=== PATIENT | male | born 1965 | race Caucasian/White ===

== ENCOUNTER → 2019-07-09 | Outpatient (CLI) | payer OTHER | LOC: MHCPAIN 07-02 08:40 | DX: G89.29 Other chronic pain (principal); M47.817 Spondylosis without myelopathy or radiculopathy, lumbosacral region; M54.16 Radiculopathy, lumbar region; M53.3 Sacrococcygeal disorders, not elsewhere classified; M96.1 Postlaminectomy syndrome, not elsewhere classified; M47.814 Spondylosis without myelopathy or radiculopathy, thoracic region | CPT/HCPCS: G0463 ==

== ENCOUNTER → 2019-07-14 | Outpatient (CLI) | payer OTHER | LOC: MHCPAIN 12:57 | DX: M54.14 Radiculopathy, thoracic region (principal); M47.814 Spondylosis without myelopathy or radiculopathy, thoracic region | CPT/HCPCS: J1100; Q9967 ==

== ENCOUNTER → 2019-09-30 | Outpatient (CLI) | payer OTHER ==
[~2019-09-30] VITALS: Ht 162.6 cm; Wt 77.8 kg
[~2019-09-30] MED LIST: 00186-0370-20 IH; AMOXICILLIN 50500 MG PO; FLEXERIL 1010 MG/TAB PO; LEVOXYL0.125 MG PO; MASON NATURAL2000 IU PO; MELATIN 3 MG-11 TAB PO; MOTRIN 400400 MG/TAB PO; PREDNISONE20 MG PO; PRILOSEC 20MG20 MG PO; PROVENTIL0.09 MG/A1 IH; SPIRIVA RE2.5 MCG/Ac IH; TYLENOL 500MG500 MG PO
[2019-09-30 11:48] VITALS: BP 122/96; PULSE 76
[2019-09-30 14:05] VITALS: BP 150/74; PULSE 79
[2019-09-30 14:15] VITALS: BP 136/92; PULSE 74
== END ==
LOC: COL.RAD 11:10
DX: M47.814 Spondylosis without myelopathy or radiculopathy, thoracic region (principal)
CPT/HCPCS: J1100

== ENCOUNTER → 2019-10-15 | Outpatient (CLI) | payer OTHER | LOC: MHCPAIN 08:09 | DX: M47.817 Spondylosis without myelopathy or radiculopathy, lumbosacral region (principal); M54.16 Radiculopathy, lumbar region | CPT/HCPCS: G0463 ==

== ENCOUNTER 2019-11-30 20:17 | Emergency (ER) | payer OTHER ==
[~2019-11-30] VITALS: Ht 162.6 cm; Wt 77.3 kg
[2019-11-30 20:30] VITALS: TEMP 97.8
[2019-11-30 20:52] LABS: BASO # 0.1 (0.0-0.2); BASO % 1.3 % (0.0-2.0); EOS # 0.4 (0.0-0.7); EOS % 5.4 % (0-4.0); GRAN # 3.4 (1.4-6.5); GRAN % 45.1 % (42.2-75.2); HEMOGLOBIN 15.7 g/dl (13.5-18.0); LYMPH % 39.6 % (20.0-51.0); MEAN CELL VOLUME 88 fl (80.0-100.0); MEAN CORPUSCULAR HEMOGLOBIN 30 pg (27.0-31.0); MEAN CORPUSCULAR HGB CONC 34 g/dl (33.0-37.0); MEAN PLATELET VOLUME 10.9 fl (7.4-10.4); MONO # 0.6 (0.1-0.6); MONO % 8.3 % (1.7-9.3); PLATELET COUNT 318 K/mm3 (130-400); RED BLOOD COUNT 5.24 M/mm3 (4.20-5.60); REDCELL DISTRIBUTION WIDTH-CV 12.6 % (11.5-14.5)
[2019-11-30 21:11] LABS: C-REACTIVE PROTEIN 1.1 mg/dL (0.0-0.9); LIPASE 147 U/L (23-300)
[2019-11-30 21:36] LABS: ALANINE AMINOTRANSFERASE 27 U/L (21-72); ALBUMIN 4.8 gm/dL (3.5-5.0); ALKALINE PHOSPHATASE 143 U/L (50-136); ANION GAP 15 mmol/L (7-16); AST,SGOT 34 U/L (15-37); BILIRUBIN,TOTAL 0.5 mg/dL (0.0-1.0); BLOOD UREA NITROGEN 17 mg/dL (9-20); CALCIUM 9.8 mg/dL (8.4-10.2); CARBON DIOXIDE 20 mmol/L (22-30); CHLORIDE 105 mmol/L (98-107); CREATININE, serum 1.27 (0.66-1.25); GLUCOSE 102 mg/dL (74-106); POTASSIUM 3.2 mmol/L (3.4-5.0); SODIUM 140 mmol/L (137-145); TOTAL PROTEIN 8.4 gm/dL (6.4-8.2)
[2019-11-30 21:49] LABS: TROPONIN-I < 0.012 ng/mL (0.000-0.035)
[2019-12-01 00:18] VITALS: BP 124/93; PULSE 67
== END 2019-12-01 00:18 | disposition home or self-care (01) ==
LOC: COL.ER 20:17
PROVIDERS: Emergency Medicine
DX: G89.29 Other chronic pain (principal); R07.9 Chest pain, unspecified; Z79.51 Long term (current) use of inhaled steroids

== ENCOUNTER → 2019-12-08 | Outpatient (CLI) | payer OTHER | LOC: COL.RAD 10:34 | DX: M43.8X4 Other specified deforming dorsopathies, thoracic region (principal) ==

== ENCOUNTER 2020-02-09 14:45 | Outpatient (RCR) | payer OTHER | END 2020-02-10 | disposition home or self-care (01) | LOC: WSPT | DX: M54.5 Low back pain (principal) ==

== ENCOUNTER → 2020-02-10 | Outpatient (CLI) | payer OTHER | LOC: MHCPAIN 12:31 | DX: M47.817 Spondylosis without myelopathy or radiculopathy, lumbosacral region (principal); M54.5 Low back pain; M47.814 Spondylosis without myelopathy or radiculopathy, thoracic region; G89.29 Other chronic pain | CPT/HCPCS: G0463 ==

== ENCOUNTER 2020-04-07 12:45 | Outpatient (RCR) | payer OTHER | END 2020-05-17 | LOC: WSPT | DX: M54.5 Low back pain (principal); R55 Syncope and collapse; W19.XXXA Unspecified fall, initial encounter ==